=== PATIENT | male | born 1970 | race Caucasian/White ===

== ENCOUNTER 2024-05-09 08:57 | Emergency (ER) | payer OTHER ==
[~2024-05-09] VITALS: Ht 175.3 cm; Wt 97.7 kg
[~2024-05-09 08:57] MED LIST: CLON-592 PO; MIRT-89 PO
[2024-05-09 09:26] VITALS: TEMP 98.3
[2024-05-09 11:30] VITALS: BP 121/70; PULSE 68; RESP 16
[2024-05-09] MEDS ORDERED: HYDR-4584 PO (11:54)
[2024-05-09] MEDS ORDERED: MIRT-93 PO (11:54)
[2024-05-09] MEDS ORDERED: LORA-999 PO (11:54)
[2024-05-09] MEDS ORDERED: BUSP10TA23 PO (11:54)
[2024-05-09] MEDS: ClonazePAM 1 MG TABLET PO ONE (12:06)
[2024-05-09] MEDS ORDERED: CLON-595 PO (14:01)
== END 2024-05-09 14:20 | disposition home or self-care (01) ==
LOC: EMS 08:57
DX: F41.1 Generalized anxiety disorder (principal); F32.A Depression, unspecified
CPT/HCPCS: 99283

== ENCOUNTER 2024-07-05 06:33 | Emergency (ER) | payer OTHER ==
[~2024-07-05] VITALS: Ht 177.8 cm; Wt 90.9 kg
[~2024-07-05 06:33] MED LIST changes: +BUSP10TA23 PO; -CLON-592 PO; +CLON-595 PO; +HYDR-4584 PO; +LORA-999 PO; -MIRT-89 PO; +MIRT-93 PO
[2024-07-05] MEDS ORDERED: LORazepam 1 MG TABLET PO ONE (06:45)
[2024-07-05] MEDS: LORazepam 0.5 MG TABLET PO ONE (06:50)
[2024-07-05 06:51] VITALS: TEMP 98.1
[2024-07-05 07:34] LABS: BASOPHILS % (AUTO) 1.4 % (0.0-2.0); EOSINOPHILS % (AUTO) 2.3 % (1.0-6.0); HEMATOCRIT 42.5 % (41-53); HEMOGLOBIN 13.7 g/dL (13.5-17.5); LYMPHOCYTES # (AUTO) 1.5 K/uL (1.0-4.8); LYMPHOCYTES % (AUTO) 24.2 % (22.0-44.0); MEAN CORPUSCULAR HEMOGLOBIN 27.8 pg (26.0-34.0); MEAN CORPUSCULAR HGB CONC 32.2 G/dL (31.0-37.0); MEAN CORPUSCULAR VOLUME 86 fL (80-100); MONOCYTES # (AUTO) 0.9 K/uL (0.1-1.0); NEUTROPHILS # (AUTO) 3.6 K/uL (1.8-7.7); NEUTROPHILS % (AUTO) 58.1 % (40.0-70.0); PLATELET COUNT (AUTO) 287 K/uL (150-450); RED BLOOD CELL COUNT(AUTO) 4.92 MIL/uL (4.50-5.90); RED CELL DISTRIBUTION WIDTH 16.7 % (11.5-14.5); WHITE BLOOD COUNT (AUTO) 6.2 K/uL (4.5-11.0)
[2024-07-05 07:53] LABS: ANION GAP 11 mmol/L (8-16); CALCIUM, TOTAL 8.3 mg/dL (8.8-10.5); CARBON DIOXIDE 27 mmol/L (22-29); CHLORIDE 101 mmol/L (98-107); CREATININE 0.91 mg/dL (0.60-1.30); GLOMERULAR FILTR. RATE CALC > 60 mL/min (>60); GLUCOSE,RANDOM 105 mg/dL (70-110); POTASSIUM 3.6 mmol/L (3.5-5.1); SODIUM SERUM 139 mmol/L (136-145); UREA NITROGEN, BLOOD 7 mg/dL (7-18)
[2024-07-05 08:05] LABS: ALCOHOL, BLOOD (SERUM) < 3 mg/dL (0-10)
[2024-07-05 08:17] LABS: ALANINE AMINOTRANSFERASE 16 U/L (12-78); ALKALINE PHOSPHATASE 78 U/L (46-116); ASPARTATE AMINOTRANSFERASE 27 U/L (15-37); BILIRUBIN,TOTAL 0.4 mg/dL (0.1-1.0); CREATINE KINASE, TOTAL ONLY 134 U/L (39-308); PHOSPHORUS 3.6 mg/dL (2.5-4.9); TOTAL PROTEIN, SERUM 7.2 g/dL (6.4-8.2)
[2024-07-05] MEDS: MAGNESIUM OXIDE 400 MG TABLET PO ONE (08:51)
[2024-07-05 09:29] VITALS: BP 127/64; PULSE 62; RESP 18; O2SAT 95
== END 2024-07-05 09:40 | disposition home or self-care (01) ==
LOC: EMS 06:34
DX: F41.9 Anxiety disorder, unspecified (principal)
CPT/HCPCS: 99283; 80048; 80076; 82550; 83735; 84100; 85025; 36415; G0480

== ENCOUNTER 2024-07-19 12:23 | Inpatient (IN) | payer OTHER ==
[~2024-07-19] VITALS: Ht 177.8 cm; Wt 100.6 kg
[2024-07-19 13:36] LABS: BASOPHILS % (AUTO) 1.2 % (0.0-2.0); EOSINOPHILS % (AUTO) 1.3 % (1.0-6.0); HEMATOCRIT 47.5 % (41-53); HEMOGLOBIN 15.3 g/dL (13.5-17.5); LYMPHOCYTES # (AUTO) 1.6 K/uL (1.0-4.8); LYMPHOCYTES % (AUTO) 25.5 % (22.0-44.0); MEAN CORPUSCULAR HEMOGLOBIN 28.6 pg (26.0-34.0); MEAN CORPUSCULAR HGB CONC 32.2 G/dL (31.0-37.0); MEAN CORPUSCULAR VOLUME 89 fL (80-100); MONOCYTES # (AUTO) 0.8 K/uL (0.1-1.0); MONOCYTES % (AUTO) 13.2 % (2.0-9.0); NEUTROPHILS # (AUTO) 3.7 K/uL (1.8-7.7); NEUTROPHILS % (AUTO) 58.8 % (40.0-70.0); PLATELET COUNT (AUTO) 357 K/uL (150-450); RED BLOOD CELL COUNT(AUTO) 5.36 MIL/uL (4.50-5.90); RED CELL DISTRIBUTION WIDTH 17.8 % (11.5-14.5); WHITE BLOOD COUNT (AUTO) 6.2 K/uL (4.5-11.0)
[2024-07-19 13:39] LABS: APPEARANCE,URINE CLEAR (CLEAR); BILIRUBIN,URINE NEGATIVE (NEGATIVE); COLOR,URINE COLORLESS (YELLOW); GLUCOSE, URINE (UA) NEGATIVE (NEGATIVE); KETONES,URINE NEGATIVE (NEGATIVE); LEUKOCYTE ESTERASE ,URINE NEGATIVE (NEGATIVE); NITRATE,URINE NEGATIVE (NEGATIVE); OCCULT BLOOD,URINE NEGATIVE (NEGATIVE); PROTEIN,URINE NEGATIVE (NEGATIVE); SPECIFIC GRAVITIY, URINE 1.004 (1.003-1.030); UROBILINOGEN,URINE <=1.0 mg/dL (<=1.0)
[2024-07-19 13:48] LABS: ALCOHOL, URINE DRUG SCREEN POSITIVE (NEGATIVE); AMPHET/METH SCREEN,URINE NEGATIVE (NEGATIVE); BARBITURATE SCREEN, URINE NEGATIVE (NEGATIVE); BENZODIAZEPINES SCREEN,URINE NEGATIVE (NEGATIVE); CANNABINOID SCREEN,URINE NEGATIVE (NEGATIVE); COCAINE SCREEN,URINE NEGATIVE (NEGATIVE); METHADONE SCREEN, URINE NEGATIVE (NEGATIVE); OPIATE SCREEN,URINE NEGATIVE (NEGATIVE); PHENCYCLIDINE SCREEN,URINE NEGATIVE (NEGATIVE)
[2024-07-19 13:58] LABS: ALCOHOL, BLOOD (SERUM) 124 mg/dL (0-10)
[2024-07-19 14:32] LABS: COVID AG,FIA SOURCE NPH; SARS-COV2 (COVID) ANTIGEN,FIA Negative (Negative)
[2024-07-19 14:34] LABS: ANION GAP 14 mmol/L (8-16); CALCIUM, TOTAL 8.5 mg/dL (8.8-10.5); CARBON DIOXIDE 25 mmol/L (22-29); CHLORIDE 101 mmol/L (98-107); CREATININE 0.99 mg/dL (0.60-1.30); GLOMERULAR FILTR. RATE CALC > 60 mL/min (>60); GLUCOSE,RANDOM 106 mg/dL (70-110); POTASSIUM 3.5 mmol/L (3.5-5.1); SODIUM SERUM 140 mmol/L (136-145); UREA NITROGEN, BLOOD 5 mg/dL (7-18)
[2024-07-19 14:41] LABS: TROPONIN I-HIGH SENSITIVITY Less Than 4 ng/L (<76)
[2024-07-19] MEDS: LORazepam 1 MG TABLET PO ONE (17:20)
[2024-07-19] MEDS: ONDANSETRON HCL 4 MG/2 ML VIAL IVP ONE (18:28)
[2024-07-19] MEDS: SODIUM CHLORIDE 0.9% 1,000 ML IV ONE (19:08)
[2024-07-19] MEDS ORDERED: ONDA-104 PO (19:10)
[2024-07-19] MEDS: MAGNESIUM SULFATE 2 GM, MVI, ADULT NO.1 WITH VIT K 10 ML, THIAMINE 100 MG, FOLIC ACID 1... IV ONE (22:17)
[2024-07-19] MEDS: PROCHLORPERAZINE EDISYLATE 5 MG/ML 2 ML VIAL IVP ONE (22:18)
[2024-07-19 22:24] LABS: ALBUMIN 2.9 g/dL (3.4-5.0); BILIRUBIN,DIRECT 0.3 mg/dL (0.00-0.20); TOTAL PROTEIN, SERUM 7.1 g/dL (6.4-8.2)
[2024-07-19] MEDS ORDERED: ACETAMINOPHEN 325 MG TABLET PO PRN (22:45)
[2024-07-19] MEDS ORDERED: ZOLPIDEM TARTRATE 5 MG TABLET PO PRN (22:45)
[2024-07-19] MEDS ORDERED: MAGNESIUM HYDROXIDE SUSPENSION 30 ML UDCUP PO PRN (22:45)
[2024-07-19] MEDS ORDERED: BISACODYL 10 MG RECTAL RECTAL SUPPOSITORY PR PRN (22:45)
[2024-07-19] MEDS: PANTOPRAZOLE SODIUM 40 MG/VIAL IVP SCH (22:59)
[2024-07-19] MEDS: HEPARIN SODIUM,PORCINE 5,000 UNITS/ML VIAL SQ SCH (23:00)
[2024-07-20] MEDS: ClonazePAM 1 MG TABLET PO PRN (01:04)
[2024-07-20 01:26] VITALS: BP 130/76; PULSE 83; RESP 18; TEMP 97.9; O2SAT 99
[2024-07-20] MEDS: ONDANSETRON HCL 4 MG/2 ML VIAL IVP PRN (06:49)
[2024-07-20] MEDS: HydrOXYzine HCL 50 MG TABLET PO PRN (06:49)
[2024-07-20 08:30] VITALS: BP 129/88; PULSE 83; RESP 14; TEMP 98; O2SAT 96
[2024-07-20] MEDS: DOCUSATE SODIUM 100 MG CAPSULE PO SCH (09:00)
[2024-07-20] MEDS: BusPIRone HCL 10 MG TABLET PO SCH (09:00)
[2024-07-20 12:56] LABS: BASOPHILS % (AUTO) 0.8 % (0.0-2.0); HEMATOCRIT 44.7 % (41-53); HEMOGLOBIN 14.6 g/dL (13.5-17.5); LYMPHOCYTES % (AUTO) 21.1 % (22.0-44.0); MEAN CORPUSCULAR HGB CONC 32.7 G/dL (31.0-37.0); MEAN CORPUSCULAR VOLUME 89 fL (80-100); MONOCYTES # (AUTO) 0.8 K/uL (0.1-1.0); MONOCYTES % (AUTO) 17.4 % (2.0-9.0); NEUTROPHILS # (AUTO) 2.8 K/uL (1.8-7.7); NEUTROPHILS % (AUTO) 59.7 % (40.0-70.0); PLATELET COUNT (AUTO) 277 K/uL (150-450); RED BLOOD CELL COUNT(AUTO) 5.04 MIL/uL (4.50-5.90); RED CELL DISTRIBUTION WIDTH 17.6 % (11.5-14.5); WHITE BLOOD COUNT (AUTO) 4.7 K/uL (4.5-11.0)
[2024-07-20 13:18] LABS: ANION GAP 8 mmol/L (8-16); CALCIUM, TOTAL 8.1 mg/dL (8.8-10.5); CARBON DIOXIDE 27 mmol/L (22-29); CHLORIDE 102 mmol/L (98-107); CREATININE 0.92 mg/dL (0.60-1.30); GLOMERULAR FILTR. RATE CALC > 60 mL/min (>60); GLUCOSE,RANDOM 106 mg/dL (70-110); POTASSIUM 3.8 mmol/L (3.5-5.1); SODIUM SERUM 137 mmol/L (136-145); UREA NITROGEN, BLOOD 7 mg/dL (7-18)
[2024-07-20 16:57] VITALS: BP 134/82; PULSE 89; RESP 18; TEMP 98.3; O2SAT 98
[2024-07-20 20:21] VITALS: BP 109/72; PULSE 74; RESP 18; TEMP 98.3; O2SAT 97
[2024-07-20] MEDS: MIRTAZAPINE 30 MG TABLET PO SCH (21:07)
[2024-07-21 05:29] VITALS: BP 127/86; PULSE 85; RESP 18; TEMP 98.4; O2SAT 96
[2024-07-21 08:10] LABS: EOSINOPHILS % (AUTO) 1.7 % (1.0-6.0); HEMATOCRIT 43.9 % (41-53); HEMOGLOBIN 14.3 g/dL (13.5-17.5); LYMPHOCYTES # (AUTO) 1.5 K/uL (1.0-4.8); LYMPHOCYTES % (AUTO) 35.7 % (22.0-44.0); MEAN CORPUSCULAR HGB CONC 32.5 G/dL (31.0-37.0); MEAN CORPUSCULAR VOLUME 89 fL (80-100); MONOCYTES # (AUTO) 0.7 K/uL (0.1-1.0); MONOCYTES % (AUTO) 17.5 % (2.0-9.0); NEUTROPHILS # (AUTO) 1.9 K/uL (1.8-7.7); NEUTROPHILS % (AUTO) 44.1 % (40.0-70.0); PLATELET COUNT (AUTO) 229 K/uL (150-450); RED BLOOD CELL COUNT(AUTO) 4.92 MIL/uL (4.50-5.90); RED CELL DISTRIBUTION WIDTH 17.4 % (11.5-14.5); WHITE BLOOD COUNT (AUTO) 4.2 K/uL (4.5-11.0)
[2024-07-21 08:37] LABS: ANION GAP 10 mmol/L (8-16); CALCIUM, TOTAL 8.2 mg/dL (8.8-10.5); CARBON DIOXIDE 27 mmol/L (22-29); CHLORIDE 102 mmol/L (98-107); CREATININE 0.95 mg/dL (0.60-1.30); GLOMERULAR FILTR. RATE CALC > 60 mL/min (>60); GLUCOSE,RANDOM 89 mg/dL (70-110); POTASSIUM 3.8 mmol/L (3.5-5.1); SODIUM SERUM 139 mmol/L (136-145); UREA NITROGEN, BLOOD 10 mg/dL (7-18)
[2024-07-21 09:16] VITALS: BP 128/90; PULSE 89; RESP 20; TEMP 98.5; O2SAT 95
[2024-07-21] MEDS ORDERED: PROP20TA96 PO (12:07)
[2024-07-21] MEDS ORDERED: TRAZ-252 PO (12:07)
[2024-07-21] MEDS: PARoxetine HCL 20 MG TABLET PO SCH (13:39)
[2024-07-21] MEDS: PROPRANOLOL HCL 20 MG TABLET PO SCH (13:39)
[2024-07-21 16:12] VITALS: BP 117/79; PULSE 62; RESP 18; TEMP 98.8; O2SAT 97
[2024-07-21 20:00] VITALS: BP 98/67; PULSE 68; RESP 16; TEMP 98.6; O2SAT 96
[2024-07-21] MEDS: INFLUENZA VIRUS VACCINE TVS (6MO+) 2024-25/PF 45 MCG/0.5 ML SYRINGE IM. ONE (21:37)
[2024-07-22 04:00] VITALS: BP 127/85; PULSE 67; RESP 16; TEMP 98.7; O2SAT 96
[2024-07-22 08:04] LABS: BASOPHILS % (AUTO) 1.1 % (0.0-2.0); EOSINOPHILS % (AUTO) 3.6 % (1.0-6.0); HEMATOCRIT 45.8 % (41-53); LYMPHOCYTES # (AUTO) 1.9 K/uL (1.0-4.8); MEAN CORPUSCULAR HEMOGLOBIN 29.3 pg (26.0-34.0); MEAN CORPUSCULAR HGB CONC 32.8 G/dL (31.0-37.0); MEAN CORPUSCULAR VOLUME 89 fL (80-100); MONOCYTES # (AUTO) 0.7 K/uL (0.1-1.0); MONOCYTES % (AUTO) 11.8 % (2.0-9.0); NEUTROPHILS # (AUTO) 2.9 K/uL (1.8-7.7); NEUTROPHILS % (AUTO) 50.5 % (40.0-70.0); PLATELET COUNT (AUTO) 247 K/uL (150-450); RED BLOOD CELL COUNT(AUTO) 5.13 MIL/uL (4.50-5.90); RED CELL DISTRIBUTION WIDTH 17.6 % (11.5-14.5); WHITE BLOOD COUNT (AUTO) 5.7 K/uL (4.5-11.0)
[2024-07-22 08:14] LABS: ANION GAP 4 mmol/L (8-16); CALCIUM, TOTAL 8.5 mg/dL (8.8-10.5); CARBON DIOXIDE 30 mmol/L (22-29); CHLORIDE 103 mmol/L (98-107); CREATININE 0.93 mg/dL (0.60-1.30); GLOMERULAR FILTR. RATE CALC > 60 mL/min (>60); GLUCOSE,RANDOM 90 mg/dL (70-110); POTASSIUM 3.9 mmol/L (3.5-5.1); SODIUM SERUM 137 mmol/L (136-145); UREA NITROGEN, BLOOD 11 mg/dL (7-18)
[2024-07-22 08:27] VITALS: BP 111/77; PULSE 67; RESP 18; TEMP 98.4; O2SAT 96
[2024-07-22] MEDS ORDERED: OMEP20 PO (12:06)
[2024-07-22] MEDS ORDERED: PARO-37 PO (12:06)
[2024-07-22] MEDS ORDERED: HYDR-4584 PO (12:06)
[2024-07-22] MEDS ORDERED: CLON-595 PO (12:06)
[2024-07-22] MEDS ORDERED: MIRT-149 PO (12:06)
[2024-07-22] MEDS ORDERED: PROP20TA96 PO (12:06)
[2024-07-22] MEDS ORDERED: BUSP10TA23 PO (12:06)
== END 2024-07-22 15:06 | disposition home or self-care (01) | DRG 241 ==
LOC: EMS 12:24 → EDH 22:54 → 5S 07-20 00:50 → 5N 07-20 04:54 → 6S 07-20 10:45
PROVIDERS: ADMIT Internal Medicine; ATTEND Internal Medicine
PROC: GZ56ZZZ Individual Psychotherapy, Supportive (ICD-10-PCS; principal; 2024-07-21)
DX: K29.20 Alcoholic gastritis without bleeding (principal); F33.1 Major depressive disorder, recurrent, moderate; F10.129 Alcohol abuse with intoxication, unspecified; F10.139 Alcohol abuse with withdrawal, unspecified; F41.9 Anxiety disorder, unspecified; Y90.9 Presence of alcohol in blood, level not specified; Z20.822 Contact with and (suspected) exposure to COVID-19; I10 Essential (primary) hypertension; Z88.5 Allergy status to narcotic agent; Z63.4 Disappearance and death of family member; Z79.899 Other long term (current) drug therapy
CPT/HCPCS: 80048; 80076; 80307; 81003; 83690; 84484; 85025; 90686; 93005; 99285; C9113; G0378; G0480; J0780; J1644; J2405; J3411; J3475; J3490; J7030